=== PATIENT | female | born 1985 | race Caucasian/White ===

== ENCOUNTER 2020-06-20 18:07 | Emergency (ER) | payer MEDICAID ==
[2020-06-20] MEDS ORDERED: Aspirin 81 MG Tab.Chew PO ONE (18:31)
[2020-06-20] MEDS ORDERED: LORazepam 0.5 MG Tab PO ONE (18:31)
--- NOTE | 2020-06-20 18:37 | EDM.PDOC ---
ED HPI GENERAL MEDICAL PROBLEM - General Chief Complaint: Behavioral/Psych Stated Complaint: chest pain Time Seen by Provider: 06/20/20 18:32 Source of Information: Reports: Patient, EMS History Limitations: Reports: No Limitations - History of Present Illness INITIAL COMMENTS - FREE TEXT/NARRATIVE: Patient was having an argument with a friend over text messages this evening, s he began to cry, developed chest heaviness, became SOB, and subsequently fainted. Patient believes she had an anxiety attack, but has never had these symptoms before due to anxiety. Symptoms have improved, but is still having mild chest heaviness and feel somewhat SOB. She denies prior h/o CAD or DVT/PE. Denies FMHx of DVT/PE or early CAD. 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] 10 mg PO ASDIRECTED PRN 06/20/20 [History] Past Medical History Cardiovascular History: Denies: Blood Clots/VTE/DVT, CAD Musculoskeletal History: Reports: Back Pain, Chronic Neurological History: Reports: Migraines Psychiatric History: Reports: Anxiety Social & Family History - Tobacco Use Tobacco Use Status *Q: Current Every Day Tobacco User Tobacco Use Within Last Twelve Months: Cigarettes - Alcohol Use Alcohol Use History: Yes Alcohol Use Frequency: Rarely - Recreational Drug Use Recreational Drug Use: No ED ROS GENERAL - Review of Systems Review Of Systems: Comprehensive ROS is negative, except as noted in HPI. Neurological: Reports: Headache (bitemporal, does not feel like a migraine) ED EXAM, GENERAL - Physical Exam Exam: See Below Exam Limited By: No Limitations General Appearance: Alert, WD/WN, No Apparent Distress Eye Exam: Bilateral Eye: EOMI, PERRL Nose: Normal Inspection Throat/Mouth: No Airway Compromise Head: Atraumatic, Normocephalic Neck: Supple Respiratory/Chest: No Respiratory Distress, Lungs Clear, Normal Breath Sounds Cardiovascular: Regular Rate, Rhythm, No Gallop, No Murmur GI/Abdominal: Soft, Non-Tender, No Distention Back Exam: Full Range of Motion Extremities: Normal Range of Motion, No Pedal Edema Neurological: Alert, Oriented, Normal Cognition Psychiatric: Normal Affect, Normal Mood Skin Exam: Warm, Dry, Intact, Normal Color #1 Interpretation EKG Date: 06/20/20 Time: 18:33 Rhythm: NSR Rate (Beats/Min): 89 [place]: Normal P-Wave: Present QRS: Normal ST-T: Normal QT: Normal Comparison: NA - No Prior EKG Course - Vital Signs Last Recorded V/S: Last Vital Signs Temp 36.6 C 06/20/20 18:10 Pulse 98 06/20/20 18:10 Resp 16 06/20/20 18:46 BP 114/78 06/20/20 18:46 Pulse Ox 100 06/20/20 18:46 - Orders/Labs/Meds Orders: Active Orders 24 hr Category Date Time Status EKG Documentation Completion [RC] ASDIRECTED Care 06/20/20 18:29 Active CXR [Chest 1V Frontal] [CR] Stat Exams 06/20/20 18:29 Taken EKG 12 Lead [EK] Stat Ther 06/20/20 18:29 Ordered Labs: Laboratory Tests 06/20/20 06/20/20 06/20/20 Range/Units 18:45 18:45 18:45 WBC 10.1 (3.0-10.3) x10-3/uL RBC 4.75 (3.60-5.20) x10(6)uL Hgb 14.3 (11.4-15.5) g/dL Hct 43.1 (34.2-48.2) % MCV 90.7 (76.7-100.5) fL MCH 30.0 (23.9-33.9) pg MCHC 33.1 (31.9-34.8) g/dL RDW 12.2 L (12.3-16.5) % Plt Count 366 (151-488) x10(3)uL MPV 7.1 (7.1-12.4) fL Neut % (Auto) 75.0 (30.8-76.2) % Lymph % (Auto) 19.6 (18.4-52.1) % [place] % (Auto) 4.1 L (4.4-15.7) % Eos % (Auto) 1.1 (0.6-8.1) % Baso % (Auto) 0.2 (0.2-1.5) % Neut # (Auto) 7.6 H (1.5-6.3) x10-3/uL Lymph # (Auto) 2.0 (1.0-4.4) x10-3/uL [place] # (Auto) 0.4 (0.3-1.0) x10-3/uL Eos # (Auto) 0.1 (0.0-0.8) x10-3/uL Baso # (Auto) 0.0 (0.0-0.1) x10-3/uL PT 11.1 (9.0-11.1) sec INR 1.03 (1.00-1.24) APTT 26.9 (24.4-33.2) SECONDS D-Dimer, Quantitative (0.0-0.59) mg/LFEU Sodium 138 (135-145) mmol/L Potassium 3.9 (3.5-5.3) mmol/L Chloride 103 (100-110) mmol/L Carbon Dioxide 27 (21-32) mmol/L BUN 13 (7-18) mg/dL Creatinine 0.8 (0.55-1.02) mg/dL Est Cr Clr Drug Dosing 86.37 mL/min Estimated GFR (MDRD) > 60 (>60) BUN/Creatinine Ratio 16.3 (9-20) Glucose 91 (80-116) mg/dL Calcium 8.6 (8.6-10.2) mg/dL Total Bilirubin 1.1 (0.1-1.3) mg/dL AST 19 (5-25) IU/L ALT 17 (12-36) U/L Alkaline Phosphatase 70 (56-112) IU/L Troponin I (4.0-60.3) pg/mL Total Protein 7.6 (6.0-8.0) g/dL Albumin 4.4 (3.5-5.2) g/dL Globulin 3.2 g/dL Albumin/Globulin Ratio 1.4 02/14/21 02/14/21 Range/Units 18:45 18:45 WBC (3.0-10.3) x10-3/uL RBC (3.60-5.20) x10(6)uL Hgb (11.4-15.5) g/dL Hct (34.2-48.2) % MCV (76.7-100.5) fL MCH (23.9-33.9) pg MCHC (31.9-34.8) g/dL RDW (12.3-16.5) % Plt Count (151-488) x10(3)uL MPV (7.1-12.4) fL Neut % (Auto) (30.8-76.2) % Lymph % (Auto) (18.4-52.1) % [place] % (Auto) (4.4-15.7) % Eos % (Auto) (0.6-8.1) % Baso % (Auto) (0.2-1.5) % Neut # (Auto) (1.5-6.3) x10-3/uL Lymph # (Auto) (1.0-4.4) x10-3/uL [place] # (Auto) (0.3-1.0) x10-3/uL Eos # (Auto) (0.0-0.8) x10-3/uL Baso # (Auto) (0.0-0.1) x10-3/uL PT (9.0-11.1) sec INR (1.00-1.24) APTT (24.4-33.2) SECONDS D-Dimer, Quantitative < 0.19 (0.0-0.59) mg/LFEU Sodium (135-145) mmol/L Potassium (3.5-5.3) mmol/L Chloride (100-110) mmol/L Carbon Dioxide (21-32) mmol/L BUN (7-18) mg/dL Creatinine (0.55-1.02) mg/dL Est Cr Clr Drug Dosing mL/min Estimated GFR (MDRD) (>60) BUN/Creatinine Ratio (9-20) Glucose (80-116) mg/dL Calcium (8.6-10.2) mg/dL Total Bilirubin (0.1-1.3) mg/dL AST (5-25) IU/L ALT (12-36) U/L Alkaline Phosphatase (56-112) IU/L Troponin I < 4.0 L (4.0-60.3) pg/mL Total Protein (6.0-8.0) g/dL Albumin (3.5-5.2) g/dL Globulin g/dL Albumin/Globulin Ratio Meds: Medications Discontinued Medications Generic Name Dose Route Start Last Admin Trade Name Emily PRN Reason Stop Dose Admin Acetaminophen 1,000 mg 06/20/20 19:23 06/20/20 19:42 Tylenol Extra Strength PO 06/20/20 19:24 Not Given ONETIME ONE Aspirin 324 mg 06/20/20 18:31 06/20/20 18:41 Aspirin PO 06/20/20 18:32 324 mg ONETIME ONE Administration Ketorolac Tromethamine 30 mg 06/20/20 19:25 06/20/20 19:37 Toradol IM 06/20/20 19:26 30 mg ONETIME ONE Administration Lorazepam 0.5 mg 06/20/20 18:31 06/20/20 18:41 Ativan PO 06/20/20 18:32 0.5 mg ONETIME ONE Administration - Radiology Interpretation Free Text/Narrative:: CXR: No acute process. (ED provider interpretation) - Re-Assessments/Exams Free Text/Narrative Re-Assessment/Exam: 06/20/20 19:55 Symptoms improved Departure - Departure Time of Disposition: 19:54 Disposition: Home, Self-Care 01 Condition: Good Clinical Impression: Anxiety, Atypical chest pain, Tension headache Instructions: Nonspecific Chest Pain, Adult, Managing Anxiety, Adult, Tension Headache, Adult, [id number] Referrals: Liberty Rucker NP [Primary Care Provider] - 2 Days Forms: ED Department Discharge Additional Instructions: Rest, drink plenty of fluids. Follow up with your primary physician in 2-3 days. Return to the ER if symptoms worsen. Sepsis Event Note (ED) - Evaluation Sepsis Screening Result: No Definite Risk - Focused Exam Vital Signs: Vital Signs Temp Pulse Resp BP Pulse Ox 06/20/20 18:46 16 114/78 100 06/20/20 18:10 36.6 C 98 20 137/89 100 - My Orders Last 24 Hours: My Active Orders 06/20/20 18:29 EKG Documentation Completion [RC] ASDIRECTED CXR [Chest 1V Frontal] [CR] Stat EKG 12 Lead [EK] Stat - Assessment/Plan Last 24 Hours: My Active Orders 06/20/20 18:29 EKG Documentation Completion [RC] ASDIRECTED CXR [Chest 1V Frontal] [CR] Stat EKG 12 Lead [EK] Stat
[2020-06-20] MEDS ORDERED: Acetaminophen 500 MG Tab PO ONE (19:23)
[2020-06-20] MEDS ORDERED: Ketorolac 30 MG/ML SDV IM ONE (19:25)
--- NOTE | 2020-06-21 10:23 | CR ---
INDICATION: Chest pain. CHEST, ONE VIEW: An AP portable upright view of the chest was obtained 06/20/20 - no comparison. Mild dextroconvex scoliosis of the lower thoracic spine is noted. Heart and mediastinum are unremarkable. Overlying EKG leads are noted. Overlying snap noted. Overlying grommets noted. A definite active infiltrate or effusion was not identified. IMPRESSION: No acute process. MTDD
== END 2020-06-20 20:20 | disposition home or self-care (01) ==
LOC: FB.ED 18:07
DX: F41.9 Anxiety disorder, unspecified (principal); G44.209 Tension-type headache, unspecified, not intractable; R07.89 Other chest pain; Z72.0 Tobacco use; Z88.0 Allergy status to penicillin
CPT/HCPCS: 36415; 71045; 80053; 84484; 85025; 85379; 85610; 85730; 93005; 96372; 99285-25; A9270-GY; J1885

== ENCOUNTER 2020-11-23 18:38 | Emergency (ER) | payer MEDICAID ==
[2020-11-23] MEDS ORDERED: Ondansetron 4 MG/2 ML SDV IVPUSH ONE (18:46)
[2020-11-23] MEDS ORDERED: Ketorolac 30 MG/ML SDV IVPUSH ONE (18:46)
[2020-11-23] MEDS ORDERED: Sodium Chloride 0.9% 1,000 ML IV ONE (18:46)
--- NOTE | 2020-11-23 18:49 | EDM.PDOC ---
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 awoke 7a as usual, felt fine, ate cereal for bfast and PBJ sandwich for lunch at noon had a MOREIRA, 2h later with chst discomfort, 2h after that had emesis of red blood no f/c/d, no nausea now, no cp or abd pain now has not eaten supper (came to ED) feeling fine now Chest Pain Score (Numeric/FACES): 9 - Related Data Allergies Allergy/AdvReac Type Severity Reaction Status Date / Time Penicillins Allergy Hives Verified 11/23/20 20:37 Home Meds: Home Meds Amitriptyline [Elavil] 50 mg PO BEDTIME 06/20/20 [History] Celecoxib [CeleBREX] 200 mg PO DAILY 06/20/20 [History] Multivitamin with Minerals [Multiple Vitamin] 1 tab PO DAILY 06/20/20 [History] 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 PRN 06/20/20 [History] Sulfamethoxazole/Trimethoprim [Sulfamethoxazole-Tmp Ds Tablet] 1 each PO BID #6 tablet 11/23/20 [Rx] Past Medical History HEENT History: Reports: Other (See Below) Other HEENT History: poor dental, no upper teeth- "has dentures" 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 Denies: Abdominal Pain : Reports: No Symptoms Musculoskeletal: Reports: No Symptoms Skin: Reports: No Symptoms Neurological: Reports: No Symptoms Psychiatric: Reports: No Symptoms Hematologic/Lymphatic: Reports: No Symptoms Immunologic: Reports: No Symptoms ED EXAM, GENERAL - Physical Exam Exam: See Below Exam Limited By: No Limitations General Appearance: Alert, WD/WN, No Apparent Distress, Other (alert, pleasant, talkative, in good spirits, doing well) Ears: Normal External Exam, Hearing Grossly Normal Nose: Normal Inspection Throat/Mouth: Normal Inspection, Normal Lips, Normal Teeth, No Airway Compromise Head: Atraumatic, Normocephalic Neck: Normal Inspection, Supple, Full Range of Motion Respiratory/Chest: No Respiratory Distress, Lungs Clear, Normal Breath Sounds, Chest Non-Tender Cardiovascular: Regular Rate, Rhythm, No Edema, No Murmur GI/Abdominal: Normal Bowel Sounds, Soft, Non-Tender, No Organomegaly, No Distention, No Mass Back Exam: Normal Inspection, Full Range of Motion Extremities: Normal Inspection, Normal Range of Motion, Non-Tender, No Pedal Edema Neurological: Alert, Oriented, CN II-XII Intact, Normal Cognition, No Motor/Sensory Deficits Psychiatric: Normal Affect, Normal Mood Skin Exam: Warm, Dry, Intact, Normal Color, No Rash Lymphatic: No Adenopathy Course - Orders/Labs/Meds Orders: Active Orders 24 hr Category Date Time Status EKG Documentation Completion [RC] ASDIRECTED Care 11/23/20 18:47 Active CULTURE URINE [RM] Stat Lab 11/23/20 19:25 Received EKG 12 Lead [EK] Routine Ther 11/23/20 18:46 Ordered Labs: Laboratory Tests 11/23/20 11/23/20 11/23/20 Range/Units 18:58 18:58 18:58 WBC 9.8 (3.0-10.3) x10-3/uL RBC 4.42 (3.60-5.20) x10(6)uL Hgb 13.4 (11.4-15.5) g/dL Hct 39.5 (34.2-48.2) % MCV 89.3 (76.7-100.5) fL MCH 30.4 (23.9-33.9) pg MCHC 34.0 (31.9-34.8) g/dL RDW 12.2 L (12.3-16.5) % Plt Count 368 (151-488) x10(3)uL MPV 6.8 L (7.1-12.4) fL Neut % (Auto) 75.1 (30.8-76.2) % Lymph % (Auto) 18.8 (18.4-52.1) % [place] % (Auto) 5.2 (4.4-15.7) % Eos % (Auto) 0.7 (0.6-8.1) % Baso % (Auto) 0.2 (0.2-1.5) % Neut # (Auto) 7.4 H (1.5-6.3) x10-3/uL Lymph # (Auto) 1.8 (1.0-4.4) x10-3/uL [place] # (Auto) 0.5 (0.3-1.0) x10-3/uL Eos # (Auto) 0.1 (0.0-0.8) x10-3/uL Baso # (Auto) 0.0 (0.0-0.1) x10-3/uL Sodium 143 (135-145) mmol/L Potassium 3.5 (3.5-5.3) mmol/L Chloride 105 (100-110) mmol/L Carbon Dioxide 26 (21-32) mmol/L BUN 8 (7-18) mg/dL Creatinine 0.6 (0.55-1.02) mg/dL Est Cr Clr Drug Dosing TNP Estimated GFR (MDRD) > 60 (>60) BUN/Creatinine Ratio 13.3 (9-20) Glucose 95 (80-116) mg/dL Calcium 8.6 (8.6-10.2) mg/dL Magnesium (1.8-2.5) mg/dL Total Bilirubin 1.0 (0.1-1.3) mg/dL AST 17 D (5-25) IU/L ALT 17 (12-36) U/L Alkaline Phosphatase 67 (56-112) IU/L Troponin I < 4.0 L (4.0-60.3) pg/mL C-Reactive Protein < 0.2 L (0.5-0.9) mg/dL Total Protein 6.8 (6.0-8.0) g/dL Albumin 4.0 (3.5-5.2) g/dL Globulin 2.8 g/dL Albumin/Globulin Ratio 1.4 Lipase (73-393) U/L Urine Color (YELLOW) Urine Appearance (CLEAR) Urine pH (5.0-6.5) Ur Specific [place] (1.010-1.025) Urine Protein (NEGATIVE) mg/dL Urine Glucose (UA) (NORMAL) mg/dL Urine Ketones (NEGATIVE) mg/dL Urine Occult Blood (NEGATIVE) Urine Nitrite (NEGATIVE) Urine Bilirubin (NEGATIVE) Urine Urobilinogen (NEGATIVE) mg/dL Ur Leukocyte Esterase (NEGATIVE) Urine RBC (0-5) Urine WBC (0-5) Ur Squamous Epith Cells (NS,R,O) Urine Bacteria (NS) 11/23/20 11/23/20 11/23/20 Range/Units 18:58 18:58 19:25 WBC (3.0-10.3) x10-3/uL RBC (3.60-5.20) x10(6)uL Hgb (11.4-15.5) g/dL Hct (34.2-48.2) % MCV (76.7-100.5) fL MCH (23.9-33.9) pg MCHC (31.9-34.8) g/dL RDW (12.3-16.5) % Plt Count (151-488) x10(3)uL MPV (7.1-12.4) fL Neut % (Auto) (30.8-76.2) % Lymph % (Auto) (18.4-52.1) % [place] % (Auto) (4.4-15.7) % Eos % (Auto) (0.6-8.1) % Baso % (Auto) (0.2-1.5) % Neut # (Auto) (1.5-6.3) x10-3/uL Lymph # (Auto) (1.0-4.4) x10-3/uL [place] # (Auto) (0.3-1.0) x10-3/uL Eos # (Auto) (0.0-0.8) x10-3/uL Baso # (Auto) (0.0-0.1) x10-3/uL Sodium (135-145) mmol/L Potassium (3.5-5.3) mmol/L Chloride (100-110) mmol/L Carbon Dioxide (21-32) mmol/L BUN (7-18) mg/dL Creatinine (0.55-1.02) mg/dL Est Cr Clr Drug Dosing Estimated GFR (MDRD) (>60) BUN/Creatinine Ratio (9-20) Glucose (80-116) mg/dL Calcium (8.6-10.2) mg/dL Magnesium 1.9 (1.8-2.5) mg/dL Total Bilirubin (0.1-1.3) mg/dL AST (5-25) IU/L ALT (12-36) U/L Alkaline Phosphatase (56-112) IU/L Troponin I (4.0-60.3) pg/mL C-Reactive Protein (0.5-0.9) mg/dL Total Protein (6.0-8.0) g/dL Albumin (3.5-5.2) g/dL Globulin g/dL Albumin/Globulin Ratio Lipase 34 L (73-393) U/L Urine Color Yellow (YELLOW) Urine Appearance Slightly cloudy (CLEAR) Urine pH 7.0 H (5.0-6.5) Ur Specific [place] 1.015 (1.010-1.025) Urine Protein Negative (NEGATIVE) mg/dL Urine Glucose (UA) Normal (NORMAL) mg/dL Urine Ketones Negative (NEGATIVE) mg/dL Urine Occult Blood Negative (NEGATIVE) Urine Nitrite Positive H (NEGATIVE) Urine Bilirubin Negative (NEGATIVE) Urine Urobilinogen Normal (NEGATIVE) mg/dL Ur Leukocyte Esterase Small H (NEGATIVE) Urine RBC 0-5 (0-5) Urine WBC 10-20 H (0-5) Ur Squamous Epith Cells Few H (NS,R,O) Urine Bacteria Many H (NS) Meds: Medications Discontinued Medications Generic Name Dose Route Start Last Admin Trade Name Emily PRN Reason Stop Dose Admin Sodium Chloride 1,000 mls @ 999 mls/hr 11/23/20 18:46 11/23/20 20:09 Normal Saline IV 11/23/20 19:46 999 mls/hr .BOLUS ONE Administration Ketorolac Tromethamine 30 mg 11/23/20 18:46 11/23/20 20:08 Ketorolac 30 Mg/Ml Sdv IVPUSH 11/23/20 18:47 30 mg ONETIME ONE Administration Ondansetron HCl 4 mg 11/23/20 18:46 11/23/20 20:08 Ondansetron 4 Mg/2 Ml Sdv IVPUSH 11/23/20 18:47 4 mg ONETIME ONE Administration - Re-Assessments/Exams Free Text/Narrative Re-Assessment/Exam: 11/23/20 20:43 u/a is positive, no previous UT pt additional w/u neg, constellation of sxs uncertain, appear c/w UTI hgb wnl, doubt PUD or gastritis pt quite talkative and alert and nonill in ED, should do well with sulfa antbx, UC pending Departure - Departure Time of Disposition: 20:40 Disposition: Home, Self-Care 01 Condition: Good Clinical Impression: Urinary tract infection - Discharge Information *PRESCRIPTION DRUG MONITORING PROGRAM REVIEWED*: Not Applicable *COPY OF PRESCRIPTION DRUG MONITORING REPORT IN PATIENT JOSE: Not Applicable Prescriptions: Sulfamethoxazole/Trimethoprim [Sulfamethoxazole-Tmp Ds Tablet] 1 each PO BID #6 tablet Instructions: Urinary Tract Infection, Adult Additional Instructions: Increase fluids. Get adequate rest. Maintain nutrition. For infection, take sulfa antibotic 2 times a day for the next 3 days. See your doctor in 5 days for additional recommendations. Call or return to Emergency Department if you are feeling worse. - My Orders Last 24 Hours: My Active Orders 11/23/20 18:46 EKG 12 Lead [EK] Routine 11/23/20 18:47 EKG Documentation Completion [RC] ASDIRECTED 11/23/20 19:25 CULTURE URINE [RM] Stat - Assessment/Plan Last 24 Hours: My Active Orders 11/23/20 18:46 EKG 12 Lead [EK] Routine 11/23/20 18:47 EKG Documentation Completion [RC] ASDIRECTED 11/23/20 19:25 CULTURE URINE [RM] Stat
[2020-11-23] MEDS ORDERED: Sulfamethoxazole/Trimethoprim 800-160 MG Tab PO ONE (20:40)
== END 2020-11-23 21:00 | disposition home or self-care (01) ==
LOC: FB.ED 18:38
DX: N39.0 Urinary tract infection, site not specified (principal); Z88.0 Allergy status to penicillin
CPT/HCPCS: 36415; 80053; 81001; 83690; 83735; 84484; 85025; 86140; 87086; 87088; 87186; 93005; 96374; 96375; 99285-25; A9270-GY; J1885; J2405; J7030